=== PATIENT | female | born 1945 | race Caucasian/White ===

== ENCOUNTER 2020-09-22 07:49 | Inpatient (IN) | payer MEDICARE, OTHER ==
[~2020-09-22] VITALS: Ht 168 cm; Wt 74.0 kg
[~2020-09-22 07:49] MED LIST: ALPRAZOLAM0.5 MG PO; ASPIRIN EC81 MG PO; BREO ELLIPTA 11 EACH INH; CYMBALTA 30MG C30 MG PO; ELAVIL25 MG PO; EZETIMIBE10 MG PO; LIPITOR20 MG PO; LISINOPRIL10 MG PO; MAG-OXIDE 400M400 MG PO; MOBIC7.5 MG PO; NITROQUIK SL0.4 MG SL; NORVASC5 MG PO; OMEPRAZOLE40 MG PO; PROTONIX 40MG T40 MG PO; SYNTHROID50 MCG PO; TOPROL XL 25MG25 MG PO; TYLENOL ARTHRI650 MG PO; VITAMIN B-650 MG PO; VITAMIN B122500 MCG PO; VITAMIN D350 MC3 PO; ZANTAC150 MG PO; ZYRTEC10 M3 PO
[2020-09-22] MEDS ORDERED: PERCOCET 5-3251 EACH PO (08:48)
[2020-09-23 05:53] LABS: BASOPHIL 0.2 % (0-2); EOSINOPHIL 0 % (0-7); HCT 28.3 % (37.0-47.0); HGB 9.1 g/dl (12.5-16.0); LYMPHOCYTE 12.4 % (15-48); MCH 29.3 pg (25.0-31.0); MCHC 32.2 g/dL (32.0-36.0); MONOCYTE 9.3 % (0-12); MPV 12.4 fL (6.0-9.5); NEUTROPHIL 77.9 % (41-80); NRBC 0; RBC 3.11 M/uL (4.20-5.40); RDW 16.3 % (11.5-14.0); WBC 8.4 K/uL (4.0-10.5)
[2020-09-23 06:08] LABS: PLT 94 K/uL (150-400)
[2020-09-23 06:29] LABS: BUN/CREAT RATIO (CALC) 21.7 RATIO; CREATININE 0.92 mg/dL (0.51-0.95); POTASSIUM 4.8 mmol/L (3.5-5.1)
[2020-09-23] MEDS ORDERED: FEOSOL325 MG PO (09:39)
[2020-09-23] MEDS ORDERED: ASPIRIN81 MG PO (09:39)
== END 2020-09-23 11:15 | disposition home or self-care (01) | DRG 483 ==
LOC: FSDC 07:49 → FMS 07:49
PROVIDERS: ADMIT Orthopaedic Surgery
PROC: 0RRJ00Z Replacement of Right Shoulder Joint with Reverse Ball and Socket Synthetic Substitute, Open Approach (ICD-10-PCS; principal; 2020-09-22 10:00)
DX: M19.011 Primary osteoarthritis, right shoulder (principal); I10 Essential (primary) hypertension; E78.5 Hyperlipidemia, unspecified; I48.91 Unspecified atrial fibrillation; Z90.710 Acquired absence of both cervix and uterus; Z90.49 Acquired absence of other specified parts of digestive tract; Z95.5 Presence of coronary angioplasty implant and graft; Z98.890 Other specified postprocedural states
CPT/HCPCS: 36415; 73020; 80048; 85025; 86850; 86900; 86901; 94010; 94762; 97162; 97166; 97530-GP; 97535; C1713; C1776; J0171; J0697; J1100; J1885; J2250; J2270; J2370; J2405; J2704; J2795; J3010; J7120; U0002